=== PATIENT | male | born 1980 | race Caucasian/White ===

== ENCOUNTER 2020-11-03 18:02 | Emergency (ER) | payer BC, OTHER ==
[~2020-11-03] VITALS: Ht 190.5 cm; Wt 118.1 kg
[2020-11-03 18:02] VITALS: BP 160/76
[2020-11-03 18:28] LABS: BASO % 0 % (0-3); EOS # 0.1 x10^3/uL (0.0-0.7); EOS % 1 % (0-3); HEMATOCRIT 42.2 % (39.0-53.0); HEMOGLOBIN 14.6 g/dL (13.0-17.5); LYMPH # 1.6 x10^3/uL (1.0-4.8); LYMPH % 16 % (24-48); MEAN CORPUSCULAR HEMOGLOBIN 29 pg (25-35); MEAN CORPUSCULAR HGB CONC 35 g/dL (31-37); MEAN CORPUSCULAR VOLUME 83 fL (79-100); MONO # 0.7 x10^3/uL (0.0-1.1); MONO % 7 % (0-9); NEUT # 7.5 x10^3/uL (1.8-7.7); NEUT % 75 % (31-73); PLATELET COUNT 205 x10^3/uL (140-400); RED BLOOD COUNT 5.08 x10^6/uL (4.30-5.70); WHITE BLOOD COUNT 9.9 x10^3/uL (4.0-11.0)
[2020-11-03] MEDS ORDERED: KETOROLAC 30 MG/ML VIAL. IVP ONE (18:30)
[2020-11-03 18:36] LABS: CALCIUM 8.7 mg/dL (8.5-10.1); CREATININE 1.3 mg/dL (0.7-1.3); GFR 61.1; POTASSIUM 4.3 mmol/L (3.5-5.1)
[2020-11-03] MEDS ORDERED: TRAM-48 PO (19:07)
--- NOTE | 2020-11-03 19:08 | PHYS DOC ---
Past Medical History Past Surgical History: Other Additional Past Surgical Histo: R ULNAR NERVE SURGERY Smoking Status: Never Smoker Additional Information: CHEWS TOBACCO Alcohol Use: Occasionally General Adult EDM: Chief Complaint: UPPER EXTREMITY INJURY HPI: HPI: Patient is a 40 year [id number] male presents for evaluation of right upper extremity crush injury. Prior to arrival patient was working on his tractor trailer. Patient had his arm under the bed but above the tires when they truck bed shifted and pinned his right arm between the truck bed and tire. Arm was trapped for approximately 5 minutes. On exam patient has full range of motion of right upper extremity. RUE is NVI. Patient has abrasions right shoulder, right arm, right forearm, and posterior aspect of right hand over MCP. Patient states he has some numbness of his thumb. Patient unsure if Td Up to date. Review of Systems: Review of Systems: Constitutional: Denies fever or chills. [] Eyes: Denies change in visual acuity. [] HENT: Denies nasal congestion or sore throat. [] Respiratory: Denies cough or shortness of breath. [] Cardiovascular: Denies chest pain or edema. [] GI: Denies abdominal pain, nausea, vomiting, bloody stools or diarrhea. [] : Denies dysuria. [] Musculoskeletal: Positive extremity pain Integument: Denies rash. [] Positive abrasion Neurologic: Denies headache, focal weakness or sensory changes. [] Endocrine: Denies polyuria or polydipsia. [] Lymphatic: Denies swollen glands. [] Psychiatric: Denies depression or anxiety. [] Heart Score: C/O Chest Pain: N/A Risk Factors: Risk Factors: DM, Current or recent (<one month) smoker, HTN, HLP, family history of CAD, obesity. Risk Scores: Score 0 - 3: 2.5% MACE over next 6 weeks - Discharge Home Score 4 - 6: 20.3% MACE over next 6 weeks - Admit for Clinical Observation Score 7 - 10: 72.7% MACE over next 6 weeks - Early Invasive Strategies Current Medications: Current Medications Medications (Trade) Dose Ordered Sig/David Start Time Stop Time Status Last Admin Dose Admin Ketorolac Tromethamine (Toradol 30mg Vial) 30 mg 1X ONCE 11/03/20 18:30 11/03/20 18:45 DC 11/03/20 18:39 30 MG Allergies: Allergies: Allergies Coded Allergies Type Severity Reaction Last Updated Verified Penicillins Allergy Unknown 11/03/20 Yes Physical Exam: PE: General: alert, no acute distress. Skin: warm, dry and intact. HENT: bilateral external ears normal, oropharynx moist, nose normal. Head:: Normocephalic, atraumatic. Neck: Trachea midline. Eyes: EOMI, Normal conjunctiva, No drainage CARDIOVASCULAR: Regular rate and rhythm RESPIRATORY: No respiratory distress Back: Full range of motion. Skin: Warm, dry, no erythema, no rash. abrasions right shoulder, right arm, r ight forearm, and posterior aspect of right hand over MCP MUSCULOSKELETAL: Full range of motion of bilateral upper and lower extremities. GASTROINTESTINAL: Abdomen soft without rebound or guarding. NEUROLOGICAL: Alert and noted to person, place and time. No neurological d eficits observed. RUE is NVI. Patient states he has some numbness of his thumb. Psychiatric: Cooperative. Normal judgment Current Patient Data: Labs: Laboratory Tests Test 11/03/20 18:21 White Blood Count 9.9 x10^3/uL (4.0-11.0) Red Blood Count 5.08 x10^6/uL (4.30-5.70) Hemoglobin 14.6 g/dL (13.0-17.5) Hematocrit 42.2 % (39.0-53.0) Mean Corpuscular Volume 83 fL (79-100) Mean Corpuscular Hemoglobin 29 pg (25-35) Mean Corpuscular Hemoglobin Concent 35 g/dL (31-37) Red Cell Distribution Width 15.0 % (11.5-14.5) H Platelet Count 205 x10^3/uL (140-400) Neutrophils (%) (Auto) 75 % (31-73) H Lymphocytes (%) (Auto) 16 % (24-48) L Monocytes (%) (Auto) 7 % (0-9) Eosinophils (%) (Auto) 1 % (0-3) Basophils (%) (Auto) 0 % (0-3) Neutrophils # (Auto) 7.5 x10^3/uL (1.8-7.7) Lymphocytes # (Auto) 1.6 x10^3/uL (1.0-4.8) Monocytes # (Auto) 0.7 x10^3/uL (0.0-1.1) Eosinophils # (Auto) 0.1 x10^3/uL (0.0-0.7) Basophils # (Auto) 0.0 x10^3/uL (0.0-0.2) Sodium Level 137 mmol/L (136-145) Potassium Level 4.3 mmol/L (3.5-5.1) Chloride Level 101 mmol/L (98-107) Carbon Dioxide Level 25 mmol/L (21-32) Anion Gap 11 (6-14) Blood Urea Nitrogen 9 mg/dL (8-26) Creatinine 1.3 mg/dL (0.7-1.3) Estimated GFR (Cockcroft-Gault) 61.1 Glucose Level 116 mg/dL (70-99) H Calcium Level 8.7 mg/dL (8.5-10.1) Creatine Kinase 326 U/L (39-308) H Laboratory Tests 11/03/20 18:21 Laboratory Tests 11/03/20 18:21 Vital Signs: Vital Signs Date Time Temp Pulse Resp B/P (MAP) Pulse Ox O2 Delivery O2 Flow Rate FiO2 11/03/20 18:02 100.0 113 18 160/76 94 Room Air 100.0 EKG: EKG: [] Radiology/Procedures: Radiology/Procedures: [] Impression: X-ray wet read no acute fractures or dislocations Course & Med Decision Making: Course & Med Decision Making Pertinent Labs and Imaging studies reviewed. (See chart for details) [] Patient was evaluated for chief complaint. Work-up consisted of laboratory analysis and radiologic imaging. Results reviewed. Patient noted to have a CK greater than 300. X-rays no acute fractures or dislocation. Treatment included Toradol and IV fluids. Patient does have abrasions on his hand. Will prescribe patient Keflex. Patient seemed hesitant about pain medications advised to take Tylenol ibuprofen as needed. Theresa Disclaimer: Theresa Disclaimer: This electronic medical record was generated, in whole or in part, using a voice recognition dictation system. Departure Departure Impression: Primary Impression: Crush injury arm Additional Impression: Crush injury of hand Disposition: HOME / SELF CARE / HOMELESS Condition: STABLE Referrals: NO PCP (PCP) Patient Instructions: Abrasions, Contusion, [id number] Scripts Cephalexin (CEPHALEXIN) 500 Mg Capsule 1 CAP PO BID, #20 CAP Prov: VIVIAN ARTEAGA DO 11/03/20 Tramadol Hcl (ULTRAM) 50 Mg Tablet 1 TAB PO PRN Q6HRS PRN for pain MDD 4 Tablet(s) for 7 Days, #28 TAB 0 Refills Prov: VIVIAN ARTEAGA DO 11/03/20 VIVIAN ARTEAGA DO Nov 03, 2020 19:08
[2020-11-03] MEDS ORDERED: CEPH500C PO (19:45)
--- NOTE | 2020-11-03 20:03 | RAD ---
XR HUMERUS_RT 2 VIEWS, XR FOREARM_RIGHT 2 VIEWS, XR SHOULDER_RIGHT 2+ VIEWS, XR HAND_RIGHT 3 VIEWS 6:35 PM INDICATION: Crush injury COMPARISON: None available. TECHNIQUE: 3 views of the right hand, 2 views of the right forearm, 2 views the right humerus and 3 views the right shoulder are provided. FINDINGS/ IMPRESSION: Right shoulder: There is no acute fracture or dislocation. Mild acromioclavicular osteoarthrosis with joint space narrowing subcortical sclerosis with inferiorly projecting osteophyte. Bone mineralizati on is within normal limits. Regional soft tissues are within normal limits. There is no soft tissue g as or osseous erosion. No radiopaque foreign body. Right humerus and forearm: There is no acute fracture or dislocation. Joint spaces are maintained. Sawyer ne mineralization is within normal limits. There may be soft tissue swelling along the distal aspect of the humerus. There is no soft tissue gas or osseous erosion. No radiopaque foreign body. Right hand: There is no acute fracture or dislocation. Joint spaces are maintained. Bone mineralizati on is within normal limits. Regional soft tissues are within normal limits. There is no soft tissue g as or osseous erosion. No radiopaque foreign body. Electronically signed by: Julia Huerta MD (11/03/2020 8:00 PM) [place]
== END 2020-11-03 19:50 | disposition home or self-care (01) ==
LOC: ER 18:02
DX: S40.211A Abrasion of right shoulder, initial encounter (principal); S40.811A Abrasion of right upper arm, initial encounter; S50.811A Abrasion of right forearm, initial encounter; R20.0 Anesthesia of skin; F17.220 Nicotine dependence, chewing tobacco, uncomplicated; Z88.0 Allergy status to penicillin; W23.0XXA Caught, crushed, jammed, or pinched between moving objects, initial encounter; Y93.89 Activity, other specified; Y92.89 Other specified places as the place of occurrence of the external cause; Y99.8 Other external cause status
CPT/HCPCS: 36415; 73030; 73060; 73090; 73130; 80048; 82550; 85025; 96374; 99284; J1885